=== PATIENT | female | born 1990 | race Caucasian/White ===

== ENCOUNTER 2016-11-07 19:31 | Emergency (ER) | payer BC, OTHER ==
[2016-11-07 19:40] VITALS: TEMP 100
[2016-11-07 20:38] LABS: Appearance,Urine Cloudy (Clear); Bacteria,Urine Occasional /hpf; Bilirubin,Urine Negative (Negative); Glucose,Urine (UA) Negative (Negative); Ketones,Urine Negative (Negative); Leukocyte Esterase,Urine Negative (Negative); Mucus,Urine Rare /hpf; Nitrite,Urine Negative (Negative); Particle Count 4267; Protein,Urine Trace (Negative); RBC,Urine 1 /hpf (0-5); Specific Gravity,Urine 1.024 (1.001-1.035); Squamous Epithelial Cell,Urine 9 /hpf (0-4); UA Billing (MACRO vs. MICRO) MICRO; WBC,Urine 3 /hpf (0-5)
[2016-11-07] MEDS ORDERED: SODIUM CHLORIDE 0.9% 1,000 ML IV ONE (20:38)
[2016-11-07] MEDS ORDERED: ONDANSETRON 4 MG/2 ML VIAL IVP STA (20:39)
[2016-11-07 20:43] LABS: ALT 30 U/L (9-52); AST 53 U/L (14-36); Alkaline Phosphatase 53 U/L (38-126); Amylase 38 U/L (30-110); Anion Gap 12 mmol/L; Blood Urea Nitrogen 19 mg/dL (7-17); Calcium 8.7 mg/dL (8.4-10.2); Carbon Dioxide 26 mmol/L (22-30); Chloride 99 mmol/L (98-107); Glucose 94 mg/dL (74-99); Non-African American GFR(MDRD) >60 (>60 ml/min/1.73 sqM); Potassium 3.8 mmol/L (3.5-5.1); Sodium 137 mmol/L (137-145); Total Bilirubin 1.2 mg/dL (0.2-1.3); Total Protein 7.2 g/dL (6.3-8.2)
--- NOTE | 2016-11-07 20:44 | ED ---
Abdominal Pain HPI - General Chief Complaint: Abdominal Pain Stated Complaint: abdominal pain Time Seen by Provider: 11/07/16 19:45 Source: patient, RN notes reviewed Mode of arrival: ambulatory Limitations: no limitations - History of Present Illness Initial Comments: Patient is 26-year-old female presents to the emergency room for evaluation of nausea, vomiting and diarrhea. Patient states around 10 PM last night she began having vomiting and diarrhea. Patient states symptoms began to subside around 4 AM. Patient states this morning she was still nauseous so she went to her primary care provider. Patient states she was tested for influenza and was negative. Patient states she was sent home with Zofran. Patient states her last dose of Zofran was at 2 PM this afternoon. Patient states again felt nauseous again. Patient states she also developed diarrhea and has been having on and off abdominal pain. Patient states symptoms have not subsided so she felt she needed to be seen in the emergency room. She denies taking any Tylenol or Motrin today. Patient denies any history of abdominal surgeries. Patient does state that she had sushi last night but states no, sick from it at she was with. Patient denies recent travel outside the country. Patient has pain or burning during urination, trouble urinating or blood in urine. Patient denies flank pain. Patient is chest pain, shortness of breath, headache, dizziness. - Related Data Home Medications Medication Instructions Recorded Confirmed Amoxicillin 875 mg PO Q12HR 11/07/16 11/07/16 Multivitamin [Multivitamins Adult 2 tab PO DAILY 11/07/16 11/07/16 Gummies] Allergies Allergy/AdvReac Type Severity Reaction Status Date / Time No Known Allergies Allergy Verified 11/07/16 20:00 Review of Systems ROS Statement: Those systems with pertinent positive or pertinent negative responses have been documented in the HPI. ROS Other: All systems not noted in ROS Statement are negative. Past Medical History Past Medical History: No Reported History History of Any Multi-Drug Resistant Organisms: None Reported Additional Past Surgical History / Comment(s): sinus surgery Past Psychological History: No Psychological Hx Reported Smoking Status: Never smoker Past Alcohol Use History: Occasional Past Drug Use History: None Reported General Exam - General Exam Comments Initial Comments: Laying in exam room in no acute distress. Limitations: no limitations General appearance: alert, in no apparent distress Head exam: Present: atraumatic, normocephalic, normal inspection Eye exam: Present: normal appearance ENT exam: Present: normal exam Neck exam: Present: normal inspection Respiratory exam: Present: normal lung sounds bilaterally. Absent: respiratory distress Cardiovascular Exam: Present: regular rate, normal rhythm, normal heart sounds GI/Abdominal exam: Present: soft, normal bowel sounds. Absent: distended, tenderness, guarding, rebound, rigid Extremities exam: Present: normal inspection Back exam: Present: normal inspection Neurological exam: Present: alert, oriented X3, CN II-XII intact, normal gait Psychiatric exam: Present: normal affect, normal mood Skin exam: Present: warm, dry, intact, normal color. Absent: rash Course Vital Signs 11/07/16 11/07/16 19:37 21:57 Temperature 100 F H Pulse Rate 101 H 70 Respiratory 20 14 Rate Blood Pressure 114/74 118/70 O2 Sat by Pulse 98 100 Oximetry Medical Decision Making - Medical Decision Making Patient is a 26-year-old female presents to emergency room for evaluation of nausea, vomiting and diarrhea. Labs show no significant findings. Patient states she's feeling better after fluids and antinausea medication. Advised patient to return for any worsening symptoms. Patient states she has Zofran at home for nausea. Patient states she understands everything that was discussed with her. Case discussed with Dr. Sibley. - Lab Data Result diagrams: 11/07/16 20:23 11/07/16 20:09 Lab Results 11/07/16 11/07/16 11/07/16 Range/Units 20:09 20:23 20:23 WBC 7.0 (3.8-10.6) k/uL RBC 4.37 (3.80-5.40) m/uL Hgb 14.5 (11.4-16.0) gm/dL Hct 42.6 (34.0-46.0) % MCV 97.6 (80.0-100.0) fL MCH 33.2 (25.0-35.0) pg MCHC 34.0 (31.0-37.0) g/dL RDW 13.1 (11.5-15.5) % Plt Count 165 (150-450) k/uL Neutrophils % 81 % Lymphocytes % 12 % Monocytes % 5 % Eosinophils % 0 % Basophils % 1 % Neutrophils # 5.7 (1.3-7.7) k/uL Lymphocytes # 0.8 L (1.0-4.8) k/uL Monocytes # 0.3 (0-1.0) k/uL Eosinophils # 0.0 (0-0.7) k/uL Basophils # 0.1 (0-0.2) k/uL Sodium 137 (137-145) mmol/L Potassium 3.8 (3.5-5.1) mmol/L Chloride 99 (98-107) mmol/L Carbon Dioxide 26 (22-30) mmol/L Anion Gap 12 mmol/L BUN 19 H (7-17) mg/dL Creatinine 0.92 (0.52-1.04) mg/dL Est GFR (MDRD) Af Amer >60 (>60 ml/min/1.73 sqM) Est GFR (MDRD) Non-Af >60 (>60 ml/min/1.73 sqM) Glucose 94 (74-99) mg/dL Calcium 8.7 (8.4-10.2) mg/dL Magnesium 1.9 (1.6-2.3) mg/dL Total Bilirubin 1.2 (0.2-1.3) mg/dL AST 53 H (14-36) U/L ALT 30 (9-52) U/L Alkaline Phosphatase 53 (38-126) U/L Total Protein 7.2 (6.3-8.2) g/dL Albumin 4.4 (3.5-5.0) g/dL Amylase 38 (30-110) U/L Lipase 33 (23-300) U/L Urine Color Urine Appearance (Clear) Urine pH (5.0-8.0) Ur Specific [place] (1.001-1.035) Urine Protein (Negative) Urine Glucose (UA) (Negative) Urine Ketones (Negative) Urine Blood (Negative) Urine Nitrate (Negative) Urine Bilirubin (Negative) Urine Urobilinogen (<2.0) mg/dL Ur Leukocyte Esterase (Negative) Urine RBC (0-5) /hpf Urine WBC (0-5) /hpf Ur Squamous Epith Cells (0-4) /hpf Urine Bacteria (None) /hpf Urine Mucus (None) /hpf Urine HCG, Qual Not Detected (Not Detectd) 11/07/16 Range/Units 20:23 WBC (3.8-10.6) k/uL RBC (3.80-5.40) m/uL Hgb (11.4-16.0) gm/dL Hct (34.0-46.0) % MCV (80.0-100.0) fL MCH (25.0-35.0) pg MCHC (31.0-37.0) g/dL RDW (11.5-15.5) % Plt Count (150-450) k/uL Neutrophils % % Lymphocytes % % Monocytes % % Eosinophils % % Basophils % % Neutrophils # (1.3-7.7) k/uL Lymphocytes # (1.0-4.8) k/uL Monocytes # (0-1.0) k/uL Eosinophils # (0-0.7) k/uL Basophils # (0-0.2) k/uL Sodium (137-145) mmol/L Potassium (3.5-5.1) mmol/L Chloride (98-107) mmol/L Carbon Dioxide (22-30) mmol/L Anion Gap mmol/L BUN (7-17) mg/dL Creatinine (0.52-1.04) mg/dL Est GFR (MDRD) Af Amer (>60 ml/min/1.73 sqM) Est GFR (MDRD) Non-Af (>60 ml/min/1.73 sqM) Glucose (74-99) mg/dL Calcium (8.4-10.2) mg/dL Magnesium (1.6-2.3) mg/dL Total Bilirubin (0.2-1.3) mg/dL AST (14-36) U/L ALT (9-52) U/L Alkaline Phosphatase (38-126) U/L Total Protein (6.3-8.2) g/dL Albumin (3.5-5.0) g/dL Amylase (30-110) U/L Lipase (23-300) U/L Urine Color Yellow Urine Appearance Cloudy H (Clear) Urine pH 6.0 (5.0-8.0) Ur Specific [place] 1.024 (1.001-1.035) Urine Protein Trace H (Negative) Urine Glucose (UA) Negative (Negative) Urine Ketones Negative (Negative) Urine Blood Small H (Negative) Urine Nitrate Negative (Negative) Urine Bilirubin Negative (Negative) Urine Urobilinogen 2.0 (<2.0) mg/dL Ur Leukocyte Esterase Negative (Negative) Urine RBC 1 (0-5) /hpf Urine WBC 3 (0-5) /hpf Ur Squamous Epith Cells 9 H (0-4) /hpf Urine Bacteria Occasional H (None) /hpf Urine Mucus Rare H (None) /hpf Urine HCG, Qual (Not Detectd) - Radiology Data Radiology results: report reviewed, image reviewed Disposition Clinical Impression: Nausea vomiting and diarrhea Disposition: HOME SELF-CARE Condition: Good Instructions: Gastroenteritis (ED) Additional Instructions: Drink plenty of fluids. Take Tylenol or Motrin for fever. Take Zofran as needed for nausea. Please follow up with primary care provider in 1-2 days. If any new symptom arises or symptoms worsen, return to ER as soon as possible. Referrals: None,Stated [Primary Care Provider] - 1-2 days Time of Disposition: 21:42
[2016-11-07 20:50] LABS: Basophils # (A) 0.1 k/uL (0-0.2); Basophils % (A) 1 %; CH 33.3; CHCM 34.3; Eosinophils % (A) 0 %; HCT 42.6 % (34.0-46.0); HDW 2.46; HGB 14.5 gm/dL (11.4-16.0); Luc # (Auto) 0.12; Luc % (Auto) 2; Lymphocytes # (A) 0.8 k/uL (1.0-4.8); Lymphocytes % (A) 12 %; MCH 33.2 pg (25.0-35.0); MCV 97.6 fL (80.0-100.0); Mean Platelet Volume 8.1; Monocytes # (A) 0.3 k/uL (0-1.0); Monocytes % (A) 5 %; Neutrophils # (A) 5.7 k/uL (1.3-7.7); Neutrophils % (A) 81 %; RBC 4.37 m/uL (3.80-5.40); RDW 13.1 % (11.5-15.5); WBC (Perox) 7.12
--- NOTE | 2016-11-07 21:05 | XR ---
EXAMINATION TYPE: XR KUB DATE OF EXAM: 11/07/2016 8:58 PM COMPARISON: NONE HISTORY: Abdominal pain TECHNIQUE: 2 views FINDINGS: There is no sign of intestinal obstruction or pneumoperitoneum. Fecal pattern is normal. Diego wel gas pattern is normal. There is no sign of a mass. Lung bases are clear. There are no pathologic calcifications over the kidneys. IMPRESSION: Nonacute abdomen.
[2016-11-07 21:26] LABS: Magnesium 1.9 mg/dL (1.6-2.3)
[2016-11-07 21:59] VITALS: BP 118/70; PULSE 70; RESP 14
== END 2016-11-07 21:57 | disposition home or self-care (01) ==
LOC: EC 19:31
DX: R11.2 Nausea with vomiting, unspecified (principal); R19.7 Diarrhea, unspecified
CPT/HCPCS: 36415; 80053; 82150; 83690; 83735; 85025; 81001; 81025; 74000; 99284; 96374; 96361; J2405

== ENCOUNTER 2017-12-31 12:36 | Emergency (ER) | payer BC ==
[2017-12-31] MEDS ORDERED: SODIUM CHLORIDE 0.9% 1,000 ML IV STA (13:22)
--- NOTE | 2017-12-31 13:24 | ED ---
General Adult HPI - General Chief complaint: Anxiety Stated complaint: psych meds not working Time Seen by Provider: 12/31/17 13:00 Source: patient, RN notes reviewed Mode of arrival: ambulatory Limitations: no limitations - History of Present Illness Initial comments: Patient 27-year-old female who presents emergency room today with a chief complaint of increased anxiety. Patient doesn't at the last week she's had no relief medications that have been prescribed. She states that she was prescribed medications approximate 2 months ago. She states she has been following up with the therapist approximately 2 weeks ago had a medication discontinued. She states she still not feeling any better. She states she's had feelings of increased anxiety. She states feels that her chest become smaller. She is shaky at times. She states the dizziness. States that she's felt nauseated. Patient states that she's had all these symptoms in the past. States she has difficult time concentrating and remembering things at times. Came here to the emergency room because the like her medications are not helping her. Patient denies any recent fever, chills, shortness of breath, chest pain, back pain, abdominal pain, dysuria or hematuria, constipation or diarrhea, visual changes, or any other complaints. - Related Data Home Medications Medication Instructions Recorded Confirmed Amoxicillin 875 mg PO Q12HR 11/07/16 11/07/16 Multivitamin [Multivitamins Adult 2 tab PO DAILY 11/07/16 11/07/16 Gummies] Allergies Allergy/AdvReac Type Severity Reaction Status Date / Time No Known Allergies Allergy Verified 12/31/17 12:52 Review of Systems ROS Statement: Those systems with pertinent positive or pertinent negative responses have been documented in the HPI. ROS Other: All systems not noted in ROS Statement are negative. Past Medical History Past Medical History: No Reported History History of Any Multi-Drug Resistant Organisms: None Reported Additional Past Surgical History / Comment(s): sinus surgery Past Psychological History: Anxiety, Depression Smoking Status: Never smoker Past Alcohol Use History: Occasional Past Drug Use History: None Reported General Exam - General Exam Comments Initial Comments: General: The patient is awake and alert, in no distress, and does not appear acutely ill. Eye: Pupils are equal, round and reactive to light, extra-ocular movements are intact. No nystagmus. There is normal conjunctiva bilaterally. No signs of icterus. Ears, nose, mouth and throat: There are moist mucous membranes and no oral lesions. Neck: The neck is supple, there is no tenderness or JVD. Cardiovascular: There is a regular rate and rhythm. No murmur, rub or gallop is appreciated. Respiratory: Lungs are clear to auscultation, respirations are non-labored, breath sounds are equal. No wheezes, stridor, rales, or rhonchi. Gastrointestinal: Soft, non-distended, non-tender abdomen without masses or organomegaly noted. There is no rebound or guarding present. No CVA tenderness. Bowel sounds are unremarkable. Musculoskeletal: Normal ROM, no tenderness. Strength 5/5. Sensation intact. Pulses equal bilaterally 2+. Neurological: A&O x 3. CN II-XII intact, There are no obvious motor or sensory deficits. Coordination appears grossly intact. Speech is normal. Skin: Skin is warm and dry and no rashes or lesions are noted. Psychiatric: Cooperative. Tearful. Limitations: no limitations Course Vital Signs 12/31/17 12:50 Temperature 98.7 F Pulse Rate 85 Respiratory 20 Rate Blood Pressure 139/89 O2 Sat by Pulse 98 Oximetry Medical Decision Making - Medical Decision Making Patient has been seen by mental health here in emergency room. They recommended patient follow up outpatient. She has set up appointments with both counselor and a psychiatrist tomorrow. They will be able to evaluate her medications. Patient denies any suicidal or homicidal thoughts or plans. Patient has come. At this point going home. Advised return if any symptoms increase or worsen. - Lab Data Result diagrams: 12/31/17 13:40 12/31/17 13:40 Lab Results 12/31/17 12/31/17 12/31/17 Range/Units 13:40 13:40 13:40 WBC 5.3 (3.8-10.6) k/uL RBC 4.46 (3.80-5.40) m/uL Hgb 14.7 (11.4-16.0) gm/dL Hct 42.3 (34.0-46.0) % MCV 95.0 (80.0-100.0) fL MCH 33.0 (25.0-35.0) pg MCHC 34.7 (31.0-37.0) g/dL RDW 12.6 (11.5-15.5) % Plt Count 227 (150-450) k/uL Neutrophils % 58 % Lymphocytes % 33 % Monocytes % 5 % Eosinophils % 2 % Basophils % 1 % Neutrophils # 3.1 (1.3-7.7) k/uL Lymphocytes # 1.8 (1.0-4.8) k/uL Monocytes # 0.3 (0-1.0) k/uL Eosinophils # 0.1 (0-0.7) k/uL Basophils # 0.0 (0-0.2) k/uL Sodium 144 (137-145) mmol/L Potassium 4.1 (3.5-5.1) mmol/L Chloride 106 (98-107) mmol/L Carbon Dioxide 27 (22-30) mmol/L Anion Gap 11 mmol/L BUN 16 (7-17) mg/dL Creatinine 0.63 (0.52-1.04) mg/dL Est GFR (CKD-EPI)AfAm >90 (>60 ml/min/1.73 sqM) Est GFR (CKD-EPI)NonAf >90 (>60 ml/min/1.73 sqM) Glucose 86 (74-99) mg/dL Calcium 9.2 (8.4-10.2) mg/dL Urine Color Urine Appearance (Clear) Urine pH (5.0-8.0) Ur Specific [place] (1.001-1.035) Urine Protein (Negative) Urine Glucose (UA) (Negative) Urine Ketones (Negative) Urine Blood (Negative) Urine Nitrite (Negative) Urine Bilirubin (Negative) Urine Urobilinogen (<2.0) mg/dL Ur Leukocyte Esterase (Negative) Urine HCG, Qual Not Detected (Not Detectd) Urine Opiates Screen (NotDetected) Ur Oxycodone Screen (NotDetected) Urine Methadone Screen (NotDetected) Ur Propoxyphene Screen (NotDetected) Ur Barbiturates Screen (NotDetected) U Tricyclic Antidepress (NotDetected) Ur Phencyclidine Scrn (NotDetected) Ur Amphetamines Screen (NotDetected) U Methamphetamines Scrn (NotDetected) U Benzodiazepines Scrn (NotDetected) Urine Cocaine Screen (NotDetected) U Marijuana (THC) Screen (NotDetected) 12/31/17 Range/Units 13:40 WBC (3.8-10.6) k/uL RBC (3.80-5.40) m/uL Hgb (11.4-16.0) gm/dL Hct (34.0-46.0) % MCV (80.0-100.0) fL MCH (25.0-35.0) pg MCHC (31.0-37.0) g/dL RDW (11.5-15.5) % Plt Count (150-450) k/uL Neutrophils % % Lymphocytes % % Monocytes % % Eosinophils % % Basophils % % Neutrophils # (1.3-7.7) k/uL Lymphocytes # (1.0-4.8) k/uL Monocytes # (0-1.0) k/uL Eosinophils # (0-0.7) k/uL Basophils # (0-0.2) k/uL Sodium (137-145) mmol/L Potassium (3.5-5.1) mmol/L Chloride (98-107) mmol/L Carbon Dioxide (22-30) mmol/L Anion Gap mmol/L BUN (7-17) mg/dL Creatinine (0.52-1.04) mg/dL Est GFR (CKD-EPI)AfAm (>60 ml/min/1.73 sqM) Est GFR (CKD-EPI)NonAf (>60 ml/min/1.73 sqM) Glucose (74-99) mg/dL Calcium (8.4-10.2) mg/dL Urine Color Yellow Urine Appearance Clear (Clear) Urine pH 6.0 (5.0-8.0) Ur Specific [place] 1.025 (1.001-1.035) Urine Protein Trace H (Negative) Urine Glucose (UA) Negative (Negative) Urine Ketones Negative (Negative) Urine Blood Negative (Negative) Urine Nitrite Negative (Negative) Urine Bilirubin Negative (Negative) Urine Urobilinogen <2.0 (<2.0) mg/dL Ur Leukocyte Esterase Negative (Negative) Urine HCG, Qual (Not Detectd) Urine Opiates Screen Not Detected (NotDetected) Ur Oxycodone Screen Not Detected (NotDetected) Urine Methadone Screen Not Detected (NotDetected) Ur Propoxyphene Screen Not Detected (NotDetected) Ur Barbiturates Screen Not Detected (NotDetected) U Tricyclic Antidepress Not Detected (NotDetected) Ur Phencyclidine Scrn Not Detected (NotDetected) Ur Amphetamines Screen Not Detected (NotDetected) U Methamphetamines Scrn Not Detected (NotDetected) U Benzodiazepines Scrn Detected H (NotDetected) Urine Cocaine Screen Not Detected (NotDetected) U Marijuana (THC) Screen Not Detected (NotDetected) Disposition Clinical Impression: Anxiety Disposition: HOME SELF-CARE Instructions: Generalized Anxiety Disorder (ED) Additional Instructions: Please follow-up with your appointment tomorrow for counselor and psychiatrist. Is patient prescribed a controlled substance at discharge?: No Referrals: Dena Gustafson MD [Primary Care Provider] - 1-2 days Time of Disposition: 16:09
[2017-12-31 13:55] LABS: Basophils % (A) 1 %; Eosinophils # (A) 0.1 k/uL (0-0.7); Eosinophils % (A) 2 %; HCT 42.3 % (34.0-46.0); HGB 14.7 gm/dL (11.4-16.0); Lymphocytes # (A) 1.8 k/uL (1.0-4.8); Lymphocytes % (A) 33 %; MCHC 34.7 g/dL (31.0-37.0); Mean Platelet Volume 7.1; Monocytes # (A) 0.3 k/uL (0-1.0); Monocytes % (A) 5 %; Neutrophils # (A) 3.1 k/uL (1.3-7.7); Neutrophils % (A) 58 %; Platelet Count 227 k/uL (150-450); RBC 4.46 m/uL (3.80-5.40); RDW 12.6 % (11.5-15.5); WBC 5.3 k/uL (3.8-10.6)
[2017-12-31 13:58] LABS: Appearance,Urine Clear (Clear); Bilirubin,Urine Negative (Negative); Blood,Urine Negative (Negative); Color,Urine Yellow; Glucose,Urine (UA) Negative (Negative); Ketones,Urine Negative (Negative); Leukocyte Esterase,Urine Negative (Negative); Nitrite,Urine Negative (Negative); Protein,Urine Trace (Negative); Specific Gravity,Urine 1.025 (1.001-1.035); Urobilinogen,Urine <2.0 mg/dL (<2.0)
[2017-12-31 14:04] LABS: Anion Gap 11 mmol/L; Blood Urea Nitrogen 16 mg/dL (7-17); Calcium 9.2 mg/dL (8.4-10.2); Carbon Dioxide 27 mmol/L (22-30); Chloride 106 mmol/L (98-107); Glucose 86 mg/dL (74-99); Potassium 4.1 mmol/L (3.5-5.1); Sodium 144 mmol/L (137-145)
[2017-12-31 14:10] LABS: Amphetamine Screen,Urine Not Detected (NotDetected); Barbiturate Screen,Urine Not Detected (NotDetected); Benzodiazepines Screen,Urine Detected (NotDetected); Cocaine Screen,Urine Not Detected (NotDetected); Methadone Screen, Urine Not Detected (NotDetected); Opiate Screen,Urine Not Detected (NotDetected); Oxycodone Screen, Urine Not Detected (NotDetected); Phencyclidine Screen,Urine Not Detected (NotDetected); Tricyclic Antidepressant,Urine Not Detected (NotDetected); Urn Cannabinoid Scrn Not Detected (NotDetected)
[2017-12-31 16:29] VITALS: BP 117/87; PULSE 87; RESP 18; TEMP 98.1
== END 2017-12-31 16:29 | disposition home or self-care (01) ==
LOC: EC 12:36
DX: F41.9 Anxiety disorder, unspecified (principal); R45.83 Excessive crying of child, adolescent or adult; R42 Dizziness and giddiness
CPT/HCPCS: 36415; 80048; 80306; 81003; 81025; 82075; 85025; 96360; 99283

== ENCOUNTER → 2018-04-18 | Outpatient (CLI) | payer BC ==
--- NOTE | 2018-04-18 07:58 | MR ---
EXAMINATION TYPE: MR brain wo/w con DATE OF EXAM: 04/18/2018 7:51 AM COMPARISON: NONE HISTORY: Headache TECHNIQUE: Multiplanar, multiecho imaging of the brain was obtained with and without intravenous adm inistration of 6 mL intravenous Gadavist. FINDINGS: The cerebellar tonsils are slightly low-lying. They do not meet the requirement of a Chiari I malformation. Midline structures are otherwise unremarkable. Echoplanar diffusion imaging is unremarkable. There are normal vascular flow voids. The orbits are unremarkable. There is no evidence of a CP angle mass lesion. There is no focal lesion, mass effect or midline shift. I do not see evidence of intracranial blood. Following intravenous administration of gadolinium, I do not see evidence of abnormal enhancement. IMPRESSION: 1. NO ACUTE INTRACRANIAL ABNORMALITY. 2. SLIGHTLY LOW-LYING CEREBELLAR TONSILS.
== END | disposition home or self-care (01) ==
LOC: RADMRIMAIN 07:12
PROVIDERS: ATTEND Psychiatry & Neurology Pain Medicine
DX: R51 Headache (principal)
CPT/HCPCS: 70553; A9581

== ENCOUNTER 2019-02-02 20:16 | Emergency (ER) | payer BC ==
--- NOTE | 2019-02-02 21:03 | ED ---
Psych HPI - General Chief Complaint: Psychiatric Symptoms Stated Complaint: Mental Health Time Seen by Provider: 02/02/19 21:03 Source: patient Mode of arrival: ambulatory - History of Present Illness Initial Comments: Miriam is a 28 yo female with a history of anxiety and depression who presents to the emergency department today for evaluation of anxiety, difficulty sleeping, difficulty attending to her activities of daily living. Patient states that she's just felt overwhelmed by the stress of her job, she states that due to chronic shoulder and neck pain she has trouble completing the tasks she is assigned. She states that she is attempted to speak with her employer a bout this but continues to be given difficult physical tasks and at this point is in danger of losing her job due to her inability to complete her tasks. Patient reports that she has waves of moods where she feels that she needs to sleep all day every day she states that she sleeps through work she sleeps throughout appointment sometime she has dreams that she went to work and then wakes up and realized that she didn't. Patient states that she has tried to have outpatient follow-up with counselors and psychiatrist however her psychiatrist left the practice and she's been unable follow up with her counselor due to her or tendons. Patient states that she just feels like she has periods of really good moods where she is very productive and then times her she feels very depressed and can't accomplish anything in her life. She states that she feels like she probably needs to be on a mood stabilizer by her primary care physician will not prescribe her one. Patient states she didn't know what else to do she feels like her life is falling apart so she came to the ER for evaluation. - Related Data Home Medications Medication Instructions Recorded Confirmed FLUoxetine HCL [PROzac] 40 mg PO DAILY 02/02/19 02/02/19 Lisdexamfetamine Dimesylate 60 mg PO QAM 02/02/19 02/02/19 [Vyvanse] Allergies Allergy/AdvReac Type Severity Reaction Status Date / Time No Known Allergies Allergy Verified 02/02/19 21:21 Review of Systems ROS Statement: Those systems with pertinent positive or pertinent negative responses have been documented in the HPI. ROS Other: All systems not noted in ROS Statement are negative. Past Medical History Past Medical History: No Reported History History of Any Multi-Drug Resistant Organisms: None Reported Additional Past Surgical History / Comment(s): sinus surgery Past Psychological History: Anxiety, Depression Smoking Status: Current some day smoker Past Alcohol Use History: Occasional Past Drug Use History: None Reported General Exam - General Exam Comments Initial Comments: Physical Exam GENERAL: Patient is well-developed and well-nourished. Patient is nontoxic and well-hydrated and is in no distress. HENT: Normocephalic, Atraumatic. EYES: PERRL, EOMI PULMONARY: Unlabored respirations. No audible rales rhonchi or wheezing was noted. CARDIOVASCULAR: There is a regular rate and rhythm without any murmurs gallops or rubs. ABDOMEN: Soft and nontender with normal bowel sounds. SKIN: Skin is clear with no lesions or rashes and otherwise unremarkable. : Deferred NEUROLOGIC: Patient is alert and oriented x3. Moving all extremities spontaneously MUSCULOSKELETAL: Normal extremities with adequate strength and full range of motion. No lower extremity swelling or edema. No calf tenderness. PSYCHIATRIC: Anxious, tearful Deny suicidal or homicidal ideation Limitations: no limitations Course Vital Signs 02/02/19 20:53 Temperature 98.1 F Pulse Rate 71 Respiratory 20 Rate Blood Pressure 144/102 O2 Sat by Pulse 99 Oximetry Medical Decision Making - Medical Decision Making Patient was seen and evaluated history is obtained from the patient Patient is very anxious, tearful concerned that she's not attending to her to use of daily living she feels depressed she is likely going to lose her job due to inability to perform her tasks and her poor attendance patient reports that she just feels like her moods go up and down and right now they're very down. Patient's medically cleared for evaluation by psychiatry Patient was seen and evaluated by EPS who recommended the patient be discharged home with a plan for a partial day program patient is agreeable to this. Patient discharged home in stable condition. - Lab Data Result diagrams: 02/02/19 21:40 02/02/19 21:40 Lab Results 02/02/19 02/02/19 02/02/19 Range/Units 21:40 21:40 21:46 WBC 5.2 (3.8-10.6) k/uL RBC 4.05 (3.80-5.40) m/uL Hgb 12.9 (11.4-16.0) gm/dL Hct 39.6 (34.0-46.0) % MCV 97.9 (80.0-100.0) fL MCH 31.9 (25.0-35.0) pg MCHC 32.6 (31.0-37.0) g/dL RDW 13.0 (11.5-15.5) % Plt Count 240 (150-450) k/uL Neutrophils % 47 % Lymphocytes % 39 % Monocytes % 6 % Eosinophils % 4 % Basophils % 1 % Neutrophils # 2.5 (1.3-7.7) k/uL Lymphocytes # 2.0 (1.0-4.8) k/uL Monocytes # 0.3 (0-1.0) k/uL Eosinophils # 0.2 (0-0.7) k/uL Basophils # 0.1 (0-0.2) k/uL Sodium 139 (137-145) mmol/L Potassium 4.4 (3.5-5.1) mmol/L Chloride 105 (98-107) mmol/L Carbon Dioxide 28 (22-30) mmol/L Anion Gap 6 mmol/L BUN 17 (7-17) mg/dL Creatinine 0.68 (0.52-1.04) mg/dL Est GFR (CKD-EPI)AfAm >90 (>60 ml/min/1.73 sqM) Est GFR (CKD-EPI)NonAf >90 (>60 ml/min/1.73 sqM) Glucose 84 (74-99) mg/dL Calcium 9.4 (8.4-10.2) mg/dL Total Bilirubin 0.2 (0.2-1.3) mg/dL AST 27 (14-36) U/L ALT 18 (9-52) U/L Alkaline Phosphatase 85 (38-126) U/L Total Protein 6.4 (6.3-8.2) g/dL Albumin 4.0 (3.5-5.0) g/dL Urine Opiates Screen Not Detected (NotDetected) Ur Oxycodone Screen Not Detected (NotDetected) Urine Methadone Screen Not Detected (NotDetected) Ur Propoxyphene Screen Not Detected (NotDetected) Ur Barbiturates Screen Not Detected (NotDetected) U Tricyclic Antidepress Not Detected (NotDetected) Ur Phencyclidine Scrn Not Detected (NotDetected) Ur Amphetamines Screen Detected H (NotDetected) U Methamphetamines Scrn Not Detected (NotDetected) U Benzodiazepines Scrn Not Detected (NotDetected) Urine Cocaine Screen Not Detected (NotDetected) U Marijuana (THC) Screen Not Detected (NotDetected) Disposition Clinical Impression: Acute anxiety, Depression Disposition: HOME SELF-CARE Condition: Stable Instructions (If sedation given, give patient instructions): Depression (DC) Is patient prescribed a controlled substance at d/c from ED?: No Referrals: Dena Gustafson MD [Primary Care Provider] - 1-2 days
[2019-02-02 21:49] LABS: Basophils # (A) 0.1 k/uL (0-0.2); Basophils % (A) 1 %; Eosinophils # (A) 0.2 k/uL (0-0.7); Eosinophils % (A) 4 %; HCT 39.6 % (34.0-46.0); HGB 12.9 gm/dL (11.4-16.0); Lymphocytes % (A) 39 %; MCH 31.9 pg (25.0-35.0); MCHC 32.6 g/dL (31.0-37.0); MCV 97.9 fL (80.0-100.0); Monocytes # (A) 0.3 k/uL (0-1.0); Monocytes % (A) 6 %; Neutrophils # (A) 2.5 k/uL (1.3-7.7); Neutrophils % (A) 47 %; Platelet Count 240 k/uL (150-450); RBC 4.05 m/uL (3.80-5.40); WBC 5.2 k/uL (3.8-10.6)
[2019-02-02 21:59] LABS: ALT 18 U/L (9-52); AST 27 U/L (14-36); Alkaline Phosphatase 85 U/L (38-126); Anion Gap 6 mmol/L; Blood Urea Nitrogen 17 mg/dL (7-17); Calcium 9.4 mg/dL (8.4-10.2); Carbon Dioxide 28 mmol/L (22-30); Chloride 105 mmol/L (98-107); Glucose 84 mg/dL (74-99); Potassium 4.4 mmol/L (3.5-5.1); Sodium 139 mmol/L (137-145); Total Bilirubin 0.2 mg/dL (0.2-1.3); Total Protein 6.4 g/dL (6.3-8.2)
[2019-02-02 22:11] LABS: Urn Cannabinoid Scrn Not Detected (NotDetected)
[2019-02-02 22:12] LABS: Amphetamine Screen,Urine Detected (NotDetected); Barbiturate Screen,Urine Not Detected (NotDetected); Benzodiazepines Screen,Urine Not Detected (NotDetected); Cocaine Screen,Urine Not Detected (NotDetected); Methadone Screen, Urine Not Detected (NotDetected); Opiate Screen,Urine Not Detected (NotDetected); Oxycodone Screen, Urine Not Detected (NotDetected); Phencyclidine Screen,Urine Not Detected (NotDetected); Tricyclic Antidepressant,Urine Not Detected (NotDetected)
[2019-02-03 00:50] VITALS: BP 143/99; PULSE 64; RESP 16; TEMP 98.3
== END 2019-02-03 00:57 | disposition home or self-care (01) ==
LOC: EC 20:16
DX: F41.9 Anxiety disorder, unspecified (principal); F32.9 Major depressive disorder, single episode, unspecified; M54.2 Cervicalgia; M25.519 Pain in unspecified shoulder; G89.29 Other chronic pain; F17.200 Nicotine dependence, unspecified, uncomplicated; Z98.890 Other specified postprocedural states; Z79.899 Other long term (current) drug therapy
CPT/HCPCS: 36415; 80053; 80306; 82075; 85025; 99284

== ENCOUNTER → 2020-03-30 | Outpatient (CLI) | payer BC | END | disposition home or self-care (01) | LOC: LABWHC1 12:26 | PROVIDERS: ATTEND Obstetrics & Gynecology | DX: O20.0 Threatened abortion (principal) | CPT/HCPCS: 36415; 84702; 86850; 86900; 86901 ==

== ENCOUNTER → 2020-10-04 | Outpatient (CLI) | payer BC ==
--- NOTE | 2020-10-04 17:06 | MR ---
EXAMINATION TYPE: MR brain wo con DATE OF EXAM: 10/04/2020 COMPARISON: 04/18/2018 HISTORY: Headaches CONTRAST: None TECHNIQUE: Multiplanar, multiecho imaging on a 3.0 Melly magnet is performed through the brain. Stud y is performed within 24 hours of arrival to the hospital. The craniovertebral junction is normal. No tonsillar pegging are significant distention through the f oramen magnum is evident. The pituitary is normal. Optic chiasm is normal. Diffusion-weighted imaging is performed. No abnormal hyperintensity is present to suggest an acute i ntracranial infarct or acute ischemic change. Signal through the brain is normal. A solitary white matter change in the left parietal subcortical w alona matter is present not out of proportion to the patient age. Series 501 image 20. This is nonspec ific. High-grade headaches could be considered within the differential. Ventricles and sulci are appropriate for the patient age. IMPRESSIONS: 1. Solitary white matter change left parietal lobe not out of proportion patient age. Punctate white matter changes can be associated with migraine headaches.
== END | disposition home or self-care (01) ==
LOC: RADMRIMAIN 10:36
PROVIDERS: ATTEND Internal Medicine
DX: R90.82 White matter disease, unspecified (principal); R51.9 Headache, unspecified
CPT/HCPCS: 70551

== ENCOUNTER 2021-03-19 | Emergency (ER) | payer BC | END 2021-03-20 10:48 ==

== ENCOUNTER 2022-03-13 09:50 | Emergency (ER) | payer BC ==
[2022-03-13] MEDS ORDERED: KETOROLAC 15 MG/ML 1 ML VIAL IVP STA (10:15)
[2022-03-13 10:16] VITALS: RESP 18; TEMP 98.1
--- NOTE | 2022-03-13 10:33 | ED ---
Abdominal Pain HPI - General Chief Complaint: Abdominal Pain Stated Complaint: Abd pain Time Seen by Provider: 03/13/22 10:03 Source: patient, EMS, RN notes reviewed Mode of arrival: EMS Limitations: no limitations - History of Present Illness Initial Comments: Patient is a 32-year-old female presents to the emergency room via EMS for sudden onset of right lower quadrant pain; pain is in both her flank and right lower quadrant she believes that began as right flank pain radiating to her abdomen but is unsure as it feels like something in her abdomen is going to "burst". She received 4 mg of Zofran and 100 mcgs of fentanyl on route to the hospital via EMS without significant improvement in symptoms. She is complaining of flushing/feeling warm but denies overt fevers or chills. She is also complaining of nausea without vomiting. The symptom has not improved with Zofran. She denies any dysuria, hematuria urinary frequency, diarrhea, co nstipation, history of kidney stones or colonic abnormalities. She denies any chance of as she is on Depo-Provera as an injection contraceptive. She has past medical history significant for anxiety, depression, and migraines. She denies any other complaints or concerns at this time. - Related Data Home Medications Medication Instructions Recorded Confirmed Dextroamphetamine/Amphetamine 10 mg PO TID PRN 03/19/21 03/19/21 [Adderall] Erenumab-Aooe [Aimovig 140 mg INJ Q30D 03/19/21 03/19/21 Autoinjector] Medroxyprogesterone Acetate 150 mg INJ Q84D 03/19/21 03/19/21 [Depo-Provera] Venlafaxine HCl [Effexor XR] 37.5 mg PO HS 03/19/21 03/19/21 Previous Rx's Medication Instructions Recorded Ibuprofen [Motrin] 800 mg PO Q8H 10 Days #30 tab 03/13/22 Allergies Allergy/AdvReac Type Severity Reaction Status Date / Time No Known Allergies Allergy Verified 03/13/22 10:17 Review of Systems ROS Statement: Those systems with pertinent positive or pertinent negative responses have been documented in the HPI. ROS Other: All systems not noted in ROS Statement are negative. Past Medical History Past Medical History: No Reported History Additional Past Medical History / Comment(s): Migraine History of Any Multi-Drug Resistant Organisms: None Reported Additional Past Surgical History / Comment(s): sinus surgery Past Psychological History: Anxiety, Depression Smoking Status: Never smoker Past Alcohol Use History: Occasional Past Drug Use History: None Reported General Exam Limitations: no limitations General appearance: alert, in no apparent distress, other (in pain) Head exam: Present: atraumatic, normocephalic, normal inspection Eye exam: Present: normal appearance, PERRL, EOMI. Absent: scleral icterus, conjunctival injection, periorbital swelling ENT exam: Present: normal exam, mucous membranes moist Neck exam: Present: normal inspection Respiratory exam: Present: normal lung sounds bilaterally. Absent: respiratory distress, wheezes, rales, rhonchi, stridor, accessory muscle use Cardiovascular Exam: Present: regular rate, normal rhythm, normal heart sounds. Absent: systolic murmur, diastolic murmur, rubs, gallop, clicks GI/Abdominal exam: Present: soft, normal bowel sounds. Absent: distended, tenderness, guarding, rebound, rigid Rectal exam: Present: deferred Back exam: Present: normal inspection, CVA tenderness (R). Absent: CVA tenderness (L) Neurological exam: Present: alert, oriented X3, CN II-XII intact Psychiatric exam: Present: normal affect, normal mood Skin exam: Present: warm, dry, intact, normal color. Absent: rash Course Vital Signs 03/13/22 10:13 Temperature 98.1 F Pulse Rate 60 Respiratory 18 Rate Blood Pressure 131/87 O2 Sat by Pulse 98 Oximetry Medical Decision Making - Medical Decision Making In the setting of sudden onset severe abdominal pain will check CBC, CMP, urinalysis, and test. Once test negative will check CT of th e abdomen to rule out appendicitis. High probability for nephrolithiasis or UTI with pyelonephritis. Will give Toradol with her recent fentanyl given by ambulance without relief And monitor response. CT abdomen and pelvis shows right hydroureter and right hydronephrosis secondary to small stone versus stricture versus infection. Urinalysis not consistent with infection. Pain returned after Toradol dose. Morphine given for pain. Will monitor response. If able to control pain will plan for discharge home with plenty of oral fluids along with ibuprofen. If unable to control pain will need observation admission for intractable pain. Pain well-controlled after morphine and IV fluid bolus. Will discharge home with ibuprofen prescription along with strainer for possible catching of stone. Advised to follow-up with primary care provider and drink plenty of fluids along with avoidance of cold was and caffeine. Case discussed with Dr. Huang. - Lab Data Result diagrams: 03/13/22 10:26 03/13/22 10:26 Lab Results 03/13/22 03/13/22 03/13/22 Range/Units 10:26 10:26 10:26 WBC 8.5 (3.8-10.6) k/uL RBC 4.14 (3.80-5.40) m/uL Hgb 13.5 (11.4-16.0) gm/dL Hct 39.6 (34.0-46.0) % MCV 95.8 (80.0-100.0) fL MCH 32.7 (25.0-35.0) pg MCHC 34.1 (31.0-37.0) g/dL RDW 12.9 (11.5-15.5) % Plt Count 273 (150-450) k/uL MPV 7.5 Neutrophils % 67 % Lymphocytes % 26 % Monocytes % 3 % Eosinophils % 1 % Basophils % 1 % Neutrophils # 5.7 (1.3-7.7) k/uL Lymphocytes # 2.2 (1.0-4.8) k/uL Monocytes # 0.3 (0-1.0) k/uL Eosinophils # 0.1 (0-0.7) k/uL Basophils # 0.1 (0-0.2) k/uL Sodium 137 (137-145) mmol/L Potassium 3.5 (3.5-5.1) mmol/L Chloride 107 (98-107) mmol/L Carbon Dioxide 22 (22-30) mmol/L Anion Gap 8 mmol/L BUN 11 (7-17) mg/dL Creatinine 0.92 (0.52-1.04) mg/dL Est GFR (CKD-EPI)AfAm >90 (>60 ml/min/1.73 sqM) Est GFR (CKD-EPI)NonAf 82 (>60 ml/min/1.73 sqM) Glucose 125 H (74-99) mg/dL Calcium 8.3 L (8.4-10.2) mg/dL Total Bilirubin 0.2 (0.2-1.3) mg/dL AST 20 (14-36) U/L ALT 10 (4-34) U/L Alkaline Phosphatase 69 (38-126) U/L Total Protein 6.6 (6.3-8.2) g/dL Albumin 4.0 (3.5-5.0) g/dL Amylase 59 (30-110) U/L Lipase 71 (23-300) U/L HCG, Quant <2.4 mIU/mL Urine Color Yellow Urine Appearance Cloudy H (Clear) Urine pH 5.0 (5.0-8.0) Ur Specific [place] 1.025 (1.001-1.035) Urine Protein Trace H (Negative) Urine Glucose (UA) Negative (Negative) Urine Ketones Negative (Negative) Urine Blood Trace H (Negative) Urine Nitrite Negative (Negative) Urine Bilirubin Negative (Negative) Urine Urobilinogen <2.0 (<2.0) mg/dL Ur Leukocyte Esterase Negative (Negative) Urine RBC <1 (0-5) /hpf Urine WBC 1 (0-5) /hpf Ur Squamous Epith Cells 67 H (0-4) /hpf Urine Bacteria Rare H (None) /hpf Urine Mucus Few H (None) /hpf - Radiology Data Radiology results: report reviewed, image reviewed CT abdomen and pelvis impression right-sided hydroureter and hydronephrosis likely secondary to very tiny obstructing stone at the right ureter toe vascular junction versus stricture at that location or recently passed stone. Associated infection cannot be excluded. Recommend clinically correlating and correlation with urinalysis. Chronic colitis without acute diverticulitis or acute appendicitis. Disposition Clinical Impression: Nephrolithiasis Disposition: HOME SELF-CARE Condition: Fair Additional Instructions: Drink plenty of water. Avoid caffeine and call us. Strainer provided to attempt to catch renal stone. Utilize ibuprofen prescription as needed for pain. Please return to the Emergency Department if symptoms worsen or any other concerns. Prescriptions: Ibuprofen [Motrin] 800 mg PO Q8H 10 Days #30 tab Is patient prescribed a controlled substance at d/c from ED?: No Referrals: Tristen Booker DO [Primary Care Provider] - 1-2 days Forms: Work/School Release Time of Disposition: 13:54
[2022-03-13 10:41] LABS: Basophils # (A) 0.1 k/uL (0-0.2); Basophils % (A) 1 %; Eosinophils # (A) 0.1 k/uL (0-0.7); Eosinophils % (A) 1 %; HCT 39.6 % (34.0-46.0); HGB 13.5 gm/dL (11.4-16.0); Lymphocytes # (A) 2.2 k/uL (1.0-4.8); Lymphocytes % (A) 26 %; MCH 32.7 pg (25.0-35.0); MCHC 34.1 g/dL (31.0-37.0); MCV 95.8 fL (80.0-100.0); Mean Platelet Volume 7.5; Monocytes # (A) 0.3 k/uL (0-1.0); Monocytes % (A) 3 %; Neutrophils # (A) 5.7 k/uL (1.3-7.7); Neutrophils % (A) 67 %; Platelet Count 273 k/uL (150-450); RBC 4.14 m/uL (3.80-5.40); RDW 12.9 % (11.5-15.5); WBC 8.5 k/uL (3.8-10.6)
[2022-03-13 10:45] LABS: Appearance,Urine Cloudy (Clear); Bacteria,Urine Rare /hpf; Bilirubin,Urine Negative (Negative); Blood,Urine Trace (Negative); Color,Urine Yellow; Glucose,Urine (UA) Negative (Negative); Ketones,Urine Negative (Negative); Leukocyte Esterase,Urine Negative (Negative); Mucus,Urine Few /hpf; Nitrite,Urine Negative (Negative); Protein,Urine Trace (Negative); RBC,Urine <1 /hpf (0-5); Specific Gravity,Urine 1.025 (1.001-1.035); Squamous Epithelial Cell,Urine 67 /hpf (0-4); Urobilinogen,Urine <2.0 mg/dL (<2.0); WBC,Urine 1 /hpf (0-5)
[2022-03-13 10:55] LABS: ALT 10 U/L (4-34); AST 20 U/L (14-36); African American GFR (CKD) >90 (>60 ml/min/1.73 sqM); Alkaline Phosphatase 69 U/L (38-126); Amylase 59 U/L (30-110); Anion Gap 8 mmol/L; Blood Urea Nitrogen 11 mg/dL (7-17); Calcium 8.3 mg/dL (8.4-10.2); Carbon Dioxide 22 mmol/L (22-30); Chloride 107 mmol/L (98-107); Glucose 125 mg/dL (74-99); Lipase 71 U/L (23-300); Non-African American GFR(CKD) 82 (>60 ml/min/1.73 sqM); Potassium 3.5 mmol/L (3.5-5.1); Sodium 137 mmol/L (137-145); Total Bilirubin 0.2 mg/dL (0.2-1.3); Total Protein 6.6 g/dL (6.3-8.2)
[2022-03-13 11:12] LABS: HCG,Quantitative Serum <2.4 mIU/mL
[2022-03-13] MEDS ORDERED: MORPHINE SULFATE 4 MG/ML SYRINGE IVP STA (11:40)
--- NOTE | 2022-03-13 12:01 | CT ---
EXAMINATION TYPE: CT abdomen pelvis w con DATE OF EXAM: 03/13/2022 COMPARISON: None available HISTORY: RLQ pain CT DLP: 1133.4 mGycm Automated exposure control for dose reduction was used. TECHNIQUE: Helical acquisition of images was performed from the lung bases through the pelvis. CONTRAST: Performed without Oral Contrast and with IV Contrast, patient injected with 100 mL of Isovue 300. FINDINGS: LUNG BASES: No significant abnormality is appreciated. LIVER/GB: No significant abnormality is appreciated. PANCREAS: No significant abnormality is seen. SPLEEN: No significant abnormality is seen. ADRENALS: No significant abnormality is seen. KIDNEYS: Dilated right renal collecting system and right ureter with questionable 1.4 mm stone at the right ureterovesical junction versus a stricture at this location. Associated persistent nephrogram of the right kidney with delayed excretion and perinephric fat stranding. Right renal cyst without clarke spicious feature. Unremarkable left kidney. No left-sided hydroureter or hydronephrosis. FREE AIR: No free air is visualized. RETROPERITONEAL ADENOPATHY: None visualized REPRODUCTIVE ORGANS: Left ovarian follicle/cyst measuring 2.7 cm which could be normal for the patien t's age. No gross uterine or adnexal mass otherwise. URINARY BLADDER: Completely collapsed. PELVIC ADENOPATHY: No pathologically enlarged pelvic lymph nodes. OSSEOUS STRUCTURES: No aggressive bone lesion. BOWEL: Small sliding hiatal hernia. Unremarkable small bowel. Diffuse mild wall thickening and fatty infiltration of the colon which could be related to chronic colitis. No evidence of acute diverticul itis or acute appendicitis. OTHER: Unremarkable abdominal aorta. Suspected pelvic adhesions. No sizable ascites. IMPRESSION: Right-sided hydroureter and hydronephrosis likely secondary to a very tiny obstructing stone at the r ight ureterovesical junction versus a stricture at that location or a recently passed stone. Associat ed infection cannot be excluded. Recommend clinical correlation and correlation with urinalysis resul ts. Other findings as described above.
[2022-03-13 14:43] VITALS: BP 126/85; PULSE 74
== END 2022-03-13 14:43 | disposition home or self-care (01) ==
LOC: EC 09:50
DX: N13.2 Hydronephrosis with renal and ureteral calculous obstruction (principal)
CPT/HCPCS: 36415; 80053; 82150; 83690; 85025; 81001; 84702; 74177; 99284; 96374; 96375; J2270; J1885; Q9967

== ENCOUNTER → 2023-06-19 | Outpatient (CLI) | payer BC ==
--- NOTE | 2023-06-19 16:27 | CT ---
EXAMINATION TYPE: CT sinus wo con CT DLP: 757.3 mGycm, Automated exposure control for dose reduction was used. DATE OF EXAM: 06/19/2023 3:35 PM COMPARISON: CT facial bones 10/28/2013. CLINICAL INDICATION:Female, 33 years old with history of J32.9 CHRONIC SINUSITIS, UNSPECIFIED; PHH, C ontinuous sinus infections for years CONTRAST: None. TECHNIQUE: Multiple thin axial images were obtained through the paranasal sinuses without the use of IV contrast. Additional coronal and sagittal reformatted images were submitted for evaluation. FINDINGS: Frontal sinuses: Aerated. Aplasia of the left frontal sinus. Frontal Recess: Clear Maxillary Sinuses: Normally aerated and developed with postsurgical changes along both medial morgan. Maxillary Infundibula([facility]): Postsurgical changes and clear. Ethmoid sinuses: Normally developed with postsurgical changes bilaterally. Normal aeration. Ethmoidal notch: Protected and abutting the lateral lamina. Sphenoid sinuses: Normally developed and aerated. There is sellar sphenoid sinus pneumatization witho ut evidence of dehiscence. No dehiscence of carotid canal. No evidence of optic nerve dehiscence wit hin the sphenoid sinus. Sphenoethmoidal recesses: Clear. Nasal septum: Minimal deviation to the left. Nasal Turbinates: Within normal limits. Mastoid air cells & middle ears: The air cells are clear. The middle ears are grossly unremarkable. Modified Soft tissues & Brain: Partially seen without gross abnormality. Globes are intact. Other: Cribriform plate demonstrates asymmetric Keros classification type 2 cribriform plate. No evidence of bony dehiscence of skull base. Lamina papyracea is intact without evidence of remote orbital fracture or orbital prolapse into the e thmoid sinus. IMPRESSION: No significant mucosal sinus disease. Post surgical changes of the bilateral maxillary sinuses and et hmoid sinuses including both ostiomeatal complexes which are clear.
== END | disposition home or self-care (01) ==
LOC: RADCTMAIN 15:04
PROVIDERS: ATTEND Otolaryngology
DX: J32.9 Chronic sinusitis, unspecified (principal)
CPT/HCPCS: 70486

== ENCOUNTER → 2023-09-18 | Outpatient (CLI) | payer BC ==
--- NOTE | 2023-09-18 11:25 | P.GSHP ---
History of Present Illness H&P Date: 09/18/23 Chief Complaint: left breast lump Miriam is a 33 year old female seen in consultation for DR. Flor regarding a lump in her left breast. She had a bilateral mammogram on 07-10-23 which led to a left breast ultrasound on 07-25-23, this showed a 1.6 cm lesion probable fibroadenoma. The mammogram was done secondary to pain in the breast. The pain is worse if she doesn't wear a bra. It is worse with her period. The pain does not radiate. It is soreness. It is worse with palpation. She is not complaining of any nipple discharge or skin changes. She is not complaining of any recent trauma or infection in the breast. She has never had any surgery on her breast. Nicotine: 1/2 pack/week caffiene: several monsters/day chocolate: eats weekly BCP: yes, not using them now stopped last year, did use them for about 20 years hormones: none Family History: unsure Hormonal History: menarche: 11 G0 periods irregular; been on BCP until last year Surgical History: sinus surgery Medical History: none History: Nicotine: Half a pack per week Alcohol: Occasional Drugs:none - Constitutional Constitutional: Denies chills, Denies fever - EENT Eyes: denies blurred vision, denies pain Ears: deny: decreased hearing, tinnitus Ears, nose, mouth and throat: Reports headache, Denies sore throat - Breasts Breasts: bilateral: as per HPI - Cardiovascular Cardiovascular: Denies chest pain, Denies shortness of breath - Respiratory Respiratory: Denies cough, Denies 7 - Gastrointestinal Gastrointestinal: Denies abdominal pain, Denies diarrhea, Denies nausea, Denies vomiting - Genitourinary (Female) Genitourinary: Denies dysuria, Denies hematuria - Menstruation Menstruation: Reports as per HPI, Reports cycle variable - Musculoskeletal Musculoskeletal: Denies myalgias - Integumentary Integumentary: Denies pruritus, Denies rash - Neurological Neurological: Denies numbness, Denies weakness - Psychiatric Psychiatric: Reports anxiety, Reports depression - Endocrine Endocrine: Denies fatigue, Denies weight change - Hematologic/Lymphatic Comment: none - Allergic/Immunologic Allergic/Immunologic: Reports seasonal allergies Past Medical History Past Medical History: No Reported History Additional Past Medical History / Comment(s): Migraine History of Any Multi-Drug Resistant Organisms: None Reported Additional Past Surgical History / Comment(s): sinus surgery Past Psychological History: Anxiety, Depression Smoking Status: Never smoker Past Alcohol Use History: Occasional Past Drug Use History: None Reported Medications and Allergies Home Medications Medication Instructions Recorded Confirmed Type Dextroamphetamine/Amphetamine 10 mg PO TID PRN 03/19/21 03/19/21 History [Adderall] Erenumab-Aooe [Aimovig 140 mg INJ Q30D 03/19/21 03/19/21 History Autoinjector] Medroxyprogesterone Acetate 150 mg INJ Q84D 03/19/21 03/19/21 History [Depo-Provera] Venlafaxine HCl [Effexor XR] 37.5 mg PO HS 03/19/21 03/19/21 History Ibuprofen [Motrin] 800 mg PO Q8H 10 Days #30 tab 03/13/22 Rx Allergies Allergy/AdvReac Type Severity Reaction Status Date / Time No Known Allergies Allergy Verified 03/13/22 10:17 Surgical - Exam - General no distress - Eyes normal ocular movement - ENT no hearing loss - Neck trachea midline - Respiratory normal respiratory effort, clear to auscultation - Cardiovascular Rhythm: regular Heart Sounds: normal: S1, S2 - Abdomen Abdomen: soft, non tender, no guarding, no rigid, no rebound - Integumentary normal turgor - Neurologic no disoriented, no combative - Musculoskeletal normal gait - Psychiatric oriented to time, oriented to person, oriented to place, speech is normal, memory intact Breast Exam: BRA: 40DD Inspection: Bladder low grade 2 ptosis Palpation: Right breast: Multiple positional exam fibrocystic changes no dominant masses or notches of concern Right axilla: No adenopathy of concern Left breast: Multiple positional exam increased nodularity 2 o'clock position no other dominant masses or nodules of concern Left axilla: No adenopathy of concern Results Mammogram and ultrasound personally reviewed, ultrasound reveals a 1.2 x 1.7 cm lesion at the 2 o'clock position of the left breast which corresponds to that which is palpable Mammogram reveals a rounded density in the left breast measuring 1.6 cm a centimeters from the nipple Assessment and Plan Assessment: Impression: Cyclic mastodynia Radiographic abnormality left breast corresponds with palpable change left breast Plan: Recommendation for lifestyle modification stop nicotine and caffeine Ultrasound core biopsy left breast lesion follow-up after ultrasound core biopsy Cc: Dr. Dos Santos
== END ==
LOC: WWCWWP 10:38
PROVIDERS: ATTEND Surgery
DX: N64.4 Mastodynia (principal); F32.A Depression, unspecified; F41.9 Anxiety disorder, unspecified; N63.20 Unspecified lump in the left breast, unspecified quadrant; F17.200 Nicotine dependence, unspecified, uncomplicated

== ENCOUNTER → 2023-10-01 | Day surgery (SDC) | payer BC ==
--- NOTE | 2023-10-07 14:44 | MM ---
Reason for Exam: Post Procedure Mammogram. Patient History: Last menstrual period: 09/23/2023 Risk Values: Gabi 5 year model risk: 0.2%. NCI Lifetime model risk: 6.9%. Tissue Density: Left: The breast tissue is heterogeneously dense. This may lower the sensitivity of mammography. Pathology Description: Location: 2 o'clock. Marker Left Behind. Needle Type: Celero Cores: 1 Gauge: 12 The procedure of ultrasound guided core biopsy was explained to the patient. Benefits, alternatives, and risks were discussed. An informed consent was then obtained. The patient was placed in supine positioning for imaging and for the procedure. The overlying skin was prepped and draped in usual sterile fashion. Lidocaine was used as anesthetic into the skin and subcutaneous tissue up to area of concern in the 2:00 left breast. Under ultrasound guidance, a 12-gauge Celero vacuum assisted biopsy gun device was used to obtain one core samples. Following this, a coil Hydromark clip was left in lesion. The patient tolerated the procedure well without any immediate complication. The patient was kept in the radiology department for short stay after the procedure and then discharged home in stable condition. Postprocedure mammogram: The patient was transferred to mammography for physician ordered post procedure mammogram for clip placement verification. Post procedure mammogram shows clip within the mammographic mass. IMPRESSION: Successful, uncomplicated ultrasound guided core biopsy of 2:00 left breast mass, mammographic correlate. A fibroadenoma is suspected. Full pathology results to follow. Pathology Results: Result: Benign, Fibroadenoma. LEFT BREAST, TWO O'CLOCK, ULTRASOUND GUIDED NEEDLE CORE BIOPSY: Benign fibroadenoma with myxoid change. Overall Assessment: Benign Assessment: MG diagnostic mammo LT wo CAD. - Left: Benign, BI-RAD 2. Management: Diagnostic Mammogram of the left breast in 6 months. Surgical consultation if palpable and symptomatic. Otherwise, 6 month follow up mammogram. Electronically signed and approved by: Magy Collado M.D. Radiologist
== END ==
LOC: RADUSWWP 12:23
PROVIDERS: ATTEND Surgery
DX: D24.2 Benign neoplasm of left breast (principal)
CPT/HCPCS: 88305; 77065; 19083; A4648

== ENCOUNTER → 2023-10-08 | Outpatient (CLI) | payer BC ==
--- NOTE | 2023-10-08 11:06 | P.PN ---
Subjective Progress Note Date: 10/08/23 left breast lump Miriam is a 33 year old female seen in consultation for DR. Flor regarding a lump in her left breast. She had a bilateral mammogram on 07-10-23 which led to a left breast ultrasound on 07-25-23, this showed a 1.6 cm lesion probable fibroadenoma. The mammogram was done secondary to pain in the breast. The pain is worse if she doesn't wear a bra. It is worse with her period. The pain does not radiate. It is soreness. It is worse with palpation. She is not complaining of any nipple discharge or skin changes. She is not complaining of any recent trauma or infection in the breast. She has never had any surgery on her breast. left breast ultrasound biopsy on 10-01-23 fibroadenoma with myxoid change; this is symptomatic for the patient. Nicotine: 1/2 pack/week caffiene: several monsters/day chocolate: eats weekly BCP: yes, not using them now stopped last year, did use them for about 20 years hormones: none Family History: unsure Hormonal History: menarche: 11 G0 periods irregular; been on BCP until last year Surgical History: sinus surgery Medical History: none History: Nicotine: Half a pack per week Alcohol: Occasional Drugs:none - Constitutional Constitutional: Denies chills, Denies fever - EENT Eyes: denies blurred vision, denies pain Ears: deny: decreased hearing, tinnitus Ears, nose, mouth and throat: Reports headache, Denies sore throat - Breasts Breasts: bilateral: as per HPI - Cardiovascular Cardiovascular: Denies chest pain, Denies shortness of breath - Respiratory Respiratory: Denies cough, - Gastrointestinal Gastrointestinal: Denies abdominal pain, Denies diarrhea, Denies nausea, Denies vomiting - Genitourinary (Female) Genitourinary: Denies dysuria, Denies hematuria - Menstruation Menstruation: Reports as per HPI, Reports cycle variable - Musculoskeletal Musculoskeletal: Denies myalgias - Integumentary Integumentary: Denies pruritus, Denies rash - Neurological Neurological: Denies numbness, Denies weakness - Psychiatric Psychiatric: Reports anxiety, Reports depression - Endocrine Endocrine: Denies fatigue, Denies weight change - Hematologic/Lymphatic Comment: none - Allergic/Immunologic Allergic/Immunologic: Reports seasonal allergies Past Medical History Past Medical History: No Reported History Additional Past Medical History / Comment(s): Migraine History of Any Multi-Drug Resistant Organisms: None Reported Additional Past Surgical History / Comment(s): sinus surgery Past Psychological History: Anxiety, Depression Smoking Status: Never smoker Past Alcohol Use History: Occasional Past Drug Use History: None Reported Medications and Allergies Home Medications Medication Instructions Recorded Confirmed Type Dextroamphetamine/Amphetamine 10 mg PO TID PRN 03/19/21 03/19/21 History [Adderall] Erenumab-Aooe [Aimovig 140 mg INJ Q30D 03/19/21 03/19/21 History Autoinjector] Medroxyprogesterone Acetate 150 mg INJ Q84D 03/19/21 03/19/21 History [Depo-Provera] Venlafaxine HCl [Effexor XR] 37.5 mg PO HS 03/19/21 03/19/21 History Ibuprofen [Motrin] 800 mg PO Q8H 10 Days #30 tab 03/13/22 Rx Allergies Allergy/AdvReac Type Severity Reaction Status Date / Time No Known Allergies Allergy Verified 03/13/22 10:17 Objective - Vital Signs Vital signs: Intake & Output 10/07/23 10/08/23 10/08/23 18:59 06:59 18:59 Weight 73.028 kg - Constitutional General appearance: Present: cooperative - EENT Eyes: Present: EOMI ENT: Present: hearing grossly normal - Neck Neck: Present: normal ROM - Respiratory Respiratory: bilateral: CTA - Cardiovascular Heart sounds: normal: S1, S2 - Integumentary Integumentary: Present: normal turgor - Musculoskeletal Musculoskeletal: Present: gait normal - Psychiatric Psychiatric: Present: A&O x's 3, appropriate affect, intact judgment & insight - Additional findings Additional findings: Breast Exam: BRA: 40DD Inspection: Bilateral grade 2 ptosis Palpation: Right breast: Multiple positional exam fibrocystic changes no dominant masses or notches of concern Right axilla: No adenopathy of concern Left breast: Multiple positional exam increased nodularity 2 o'clock position no other dominant masses or nodules of concern Left axilla: No adenopathy of concern Assessment and Plan Assessment: Impression: Biopsy-proven fibroadenoma left breast symptomatic/2 o'clock position Mastodynia Plan: left Breast needle localization lumpectomy at 2 O Clock, possible oncoplastic tissue transfer. Patient encouraged to stop smoking and stop caffeine use Risk and benefits of the procedure discussed with the patient, risk include but are not limited to bleeding, infection, reaction to the anesthetic. The risk t hat the needle could move and the lesion not be completely removed is also discussed. The patient and her boyfriend understand and she wishes to proceed. CC: Dr. Louie
[2023-10-08 11:10] VITALS: BP 130/72; PULSE 85; RESP 17; TEMP 97.9
== END ==
LOC: WWCWWP 10:44
PROVIDERS: ATTEND Surgery
DX: N64.4 Mastodynia (principal); D24.2 Benign neoplasm of left breast; F32.A Depression, unspecified; F41.9 Anxiety disorder, unspecified; G43.909 Migraine, unspecified, not intractable, without status migrainosus; F17.210 Nicotine dependence, cigarettes, uncomplicated

== ENCOUNTER → 2024-10-13 | Outpatient (CLI) | payer BC ==
--- NOTE | 2024-10-13 12:07 | MM ---
Reason for Exam: Follow-up at short interval from prior study. Patient History: Menarche at age 11. Hormonal Contraceptives, from age 14 until age 29. 10/01/2023, Benign US biopsy breast VAD LT on the left side. Last menstrual period: 10/11/2024 Risk Values: Gabi 5 year model risk: 0.4%. NCI Lifetime model risk: 9.2%. Tissue Density: The breasts are heterogeneously dense, which may obscure small masses. Findings: Analyzed By CAD. Left breast biopsy clip. Table previously biopsied mass in the left breast. No new suspicious masses, calcifications or distortions. Overall Assessment: Benign, BI-RAD 2 Management: Screening Mammogram of both breasts in 1 year. Results were given to the patient verbally at the time of exam. Patient should continue monthly self-breast exams. A clinical breast exam by your physician is recommended on an annual basis. This exam should not preclude additional follow-up of suspicious palpable abnormalities. Note on Gabi scores and lifetime risk: 1. A Gabi score greater than 3% is considered moderate risk. If this is the case, consider specialist referral to assess eligibility for a risk reducing agent. 2. If overall lifetime risk for the development of breast cancer is 20% or higher, the patient may qualify for future screening with alternating mammogram and breast MRI. [facility], , 10/13/2024 12:02 PM. Electronically signed and approved by: Marshall Vega DO
== END | disposition home or self-care (01) ==
LOC: RADMAMWWP 11:18
PROVIDERS: ATTEND Family Medicine
DX: R92.8 Other abnormal and inconclusive findings on diagnostic imaging of breast (principal); R92.333 Mammographic heterogeneous density, bilateral breasts; R92.2 Inconclusive mammogram
CPT/HCPCS: 77062; 77066

== ENCOUNTER → 2025-02-24 | Outpatient (CLI) | payer BC ==
--- NOTE | 2025-02-24 14:35 | P.PN ---
Subjective Progress Note Date: 02/24/25 Principal diagnosis: Irregular mass right breast 9:00, left breast symptomatic fibroadenoma 02-24-25 Principal diagnosis: symptomatic fibroadenoma left breast/ abnormal right breast ultrasound 10/08/23 left breast lump Miriam is a 34 year old female seen in consultation for DR. Flor regarding a lump in her left breast. She had a bilateral mammogram on 07-10-23 which led to a left breast ultrasound on 07-25-23, this showed a 1.6 cm lesion probable fibroadenoma. The mammogram was done secondary to pain in the breast. The pain is worse if she doesn't wear a bra. It is worse with her period. The pain does not radiate. It is soreness. It is worse with palpation. She is not complaining of any nipple discharge or skin changes. She is not complaining of any recent trauma or infection in the breast. She has never had any surgery on her breast. left breast ultrasound biopsy on 10-01-23 fibroadenoma with myxoid change; this is symptomatic for the patient, she was scheduled for resection however decided not to and to have this followed conservatively. She did not come back for follow-up until now. She had a bilateral mammogram performed on 10-13-2024 which was felt to be BI- RADS 2 She is able to feel diffuse nodularity in her breast. bilateral breast ultrasound on 02-17-25: right bresat: 12:00 cyst 8mm by 12 mm by 7 mm follow up in 6 months 9:00 13 X 11 X 7 mm lesion irregular mass needs biopsy Left breast: bilobed hypoechoic mass 28 x 12 x 17 mm Nicotine: 1/2 pack/week in the past, now stopped caffiene: several monsters/day in the past; stopped this chocolate: occasional BCP: yes in the past, not using them now stopped 2 years ago, did use them for about 20 years hormones: none Family History: unsure Hormonal History: menarche: 11 G0 periods irregular Surgical History: sinus surgery Medical History: migraines/ botox injections History: Nicotine: Half a pack per week Alcohol: Occasional Drugs:none - Constitutional Constitutional: Denies chills, Denies fever - EENT Eyes: denies blurred vision, denies pain Ears: deny: decreased hearing, tinnitus Ears, nose, mouth and throat: Reports headache, Denies sore throat - Breasts Breasts: bilateral: as per HPI - Cardiovascular Cardiovascular: Denies chest pain, Denies shortness of breath - Respiratory Respiratory: Denies cough, - Gastrointestinal Gastrointestinal: Denies abdominal pain, Denies diarrhea, Denies nausea, Denies vomiting - Genitourinary (Female) Genitourinary: Denies dysuria, Denies hematuria - Menstruation Menstruation: Reports as per HPI, Reports cycle variable - Musculoskeletal Musculoskeletal: Denies myalgias - Integumentary Integumentary: Denies pruritus, Denies rash - Neurological Neurological: Denies numbness, Denies weakness - Psychiatric Psychiatric: Reports anxiety, Reports depression - Endocrine Endocrine: Denies fatigue, Denies weight change - Hematologic/Lymphatic Comment: none - Allergic/Immunologic Allergic/Immunologic: Reports seasonal allergies Past Medical History Past Medical History: No Reported History Additional Past Medical History / Comment(s): Migraine History of Any Multi-Drug Resistant Organisms: None Reported Additional Past Surgical History / Comment(s): sinus surgery Past Psychological History: Anxiety, Depression Smoking Status: Never smoker Past Alcohol Use History: Occasional Past Drug Use History: None Reported Medications and Allergies Home Medications Medication Instructions Recorded Confirmed Type Dextroamphetamine/Amphetamine 10 mg PO TID PRN 03/19/21 03/19/21 History [Adderall] Erenumab-Aooe [Aimovig 140 mg INJ Q30D 03/19/21 03/19/21 History Autoinjector] Medroxyprogesterone Acetate 150 mg INJ Q84D 03/19/21 03/19/21 History [Depo-Provera] Venlafaxine HCl [Effexor XR] 37.5 mg PO HS 03/19/21 03/19/21 History Ibuprofen [Motrin] 800 mg PO Q8H 10 Days #30 tab 03/13/22 Rx Allergies Allergy/AdvReac Type Severity Reaction Status Date / Time No Known Allergies Allergy Verified 03/13/22 10:17 Objective - Constitutional General appearance: Present: cooperative - EENT Eyes: Present: EOMI ENT: Present: hearing grossly normal - Neck Neck: Present: normal ROM - Respiratory Respiratory: bilateral: CTA - Cardiovascular Rhythm: regular Heart sounds: normal: S1, S2 - Integumentary Integumentary: Present: normal turgor - Musculoskeletal Musculoskeletal: Present: gait normal - Psychiatric Psychiatric: Present: A&O x's 3, appropriate affect, intact judgment & insight - Additional findings Additional findings: Breast Exam: BRA: 40DD Inspection: Bilateral grade 2 ptosis Palpation: Right breast: Multiple positional exam fibrocystic changes, nodularity upper outer quadrant area, tender to palpation in area consistent with lesion seen on ultrasound Right axilla: No adenopathy of concern Left breast: Multiple positional exam increased nodularity 2 o'clock position no other dominant masses or nodules of concern Left axilla: No adenopathy of concern Assessment and Plan Assessment: Impression: Biopsy-proven fibroadenoma left breast symptomatic/2 o'clock position Mastodynia Bilateral mammogram 10-13-2024 BI-RADS 2 bilateral breast ultrasound on 02-17-25 needs core biopsy right breast Plan: right breast ultrasound core biopsy/ follow up after this is done left breast needle localization resection of symptomatic fibroadenoma, possible oncoplastic tissue transfer Consent: I have discussed the risks, benefits and alternative therapies for the above-mentioned procedure and for both sedation/analgesia as well as necessary blood product administration, if indicated, as they pertain to this patient. The patient has indicated understanding and acceptance of the risks and procedures discussed. CC: Dr. Louie
[2025-02-24 14:44] VITALS: BP 137/63; PULSE 65; RESP 17; TEMP 97.9
== END ==
LOC: WWCWWP 14:14
PROVIDERS: ATTEND Surgery
DX: Z12.31 Encounter for screening mammogram for malignant neoplasm of breast (principal); N64.4 Mastodynia; D24.2 Benign neoplasm of left breast; F17.200 Nicotine dependence, unspecified, uncomplicated

== ENCOUNTER → 2025-03-02 | Day surgery (SDC) | payer BC ==
--- NOTE | 2025-03-08 09:14 | USB ---
Risk Values: Gabi 5 year model risk: 0.4%. NCI Lifetime model risk: 9.2%. Prior Study Comparison: 10/01/2023 Left MG diagnostic mammo LT wo CAD., [facility]. 10/13/2024 Bilateral MG 3D diag mammo w/cad [facility], [facility]. Pathology Description: Location: 9 o'clock. Marker Left Behind. Needle Type: Mammotome Cores: 4 Skin Nicks: 1 The lobulated hypoechoic lesion measuring 1.4 cm at the 9:00 position right breast, 9 cm from the nipple was identified and targeted for biopsy. We note dense surrounding tissue. No significant increased vascularity. The procedure of ultrasound guided core biopsy was explained to the patient. Benefits, alternatives, and risks were discussed. An informed consent was then obtained. The patient was placed in supine positioning for imaging and for the procedure. The overlying skin was prepped and draped in usual sterile fashion. Lidocaine buffered with bicarbonate was used as anesthetic into the skin and subcutaneous tissue up to area of concern in the right breast. Under ultrasound guidance, a 13-gauge vacuum-assisted mammotome Elite biopsy gun device was used to obtain 4 core samples. Following this, a HydroMark coil clip was left in lesion. The patient tolerated the procedure with distress and discomfort. We utilized extra lidocaine (total 10 mL 1% lidocaine) to ensure adequate anesthesia at the biopsy site. No immediate complication. The patient was kept in the radiology department for short stay after the procedure and then discharged home in stable condition. Postprocedure mammogram: Not performed at this time given patient's age. If results and symptoms warrant excision, mammogram could be performed at that time. Impression: Successful, uncomplicated ultrasound guided core biopsy 9:00 right breast, possible fibroadenoma; full pathology results to follow. Patient with planned excision for a symptomatic fibroadenoma on the left. [facility], , 03/02/2025 1:02 PM. Pathology Results: Result: Benign, Fibroadenoma. Pathology and radiology were reviewed. Findings are concordant. RIGHT BREAST, NINE O'CLOCK, ULTRASOUND GUIDED NEEDLE CORE BIOPSY: Fibroadenoma and background fibrocystic changes. Overall Assessment: Benign Management: Surgical Consultation of the right breast. Electronically signed and approved by: Magy Collado M.D. Radiologist
== END ==
LOC: RADUSWWP 09:35
PROVIDERS: ATTEND Surgery
DX: D24.1 Benign neoplasm of right breast (principal)
CPT/HCPCS: 88305; 19083; A4648

== ENCOUNTER 2025-03-22 07:05 | Day surgery (SDC) | payer BC ==
[2025-03-17 15:07] VITALS: BMI 28.9
[~2025-03-22 07:05] MED LIST: METHYLENE BLUE 50 MG, DEXTROSE 5% IN WATER 50 ML MISCELLANE ONE
[2025-03-22] MEDS: IV FLUID CONTINUATION 1,000 ML IV ONE ×2 (08:03→12:55)
[2025-03-22] MEDS: LACTATED RINGERS 1,000 ML IV SCH (08:06)
[2025-03-22] MEDS: ALPRAZolam 0.5 MG TAB PO STA (08:31)
[2025-03-22] MEDS: SODIUM BICARB 8.4% 50 ML VIAL (1 MEQ/ML) MISCELLANE ONE (09:38)
[2025-03-22] MEDS: LIDOCAINE 1% INJ 10MG/ML (20 ML MDV) SQ ONE ×2 (09:38→12:05)
[2025-03-22] MEDS: METHYLENE BLUE 50 MG/10 ML VIAL MISCELLANE ONE (09:42)
[2025-03-22] MEDS: ACETAMINOPHEN TAB 500 MG TAB PO PRN (10:21)
[2025-03-22] MEDS: ONDANSETRON 4 MG/2 ML VIAL IVP ONE (10:23)
[2025-03-22] MEDS: DEXAMETHASONE SOD PHOSPHATE 4 MG/ML 1 ML VIAL IV ONE (10:23)
[2025-03-22] MEDS: HEPARIN SODIUM,PORCINE 5,000 UNIT/ML 1 ML VIAL SQ PRN (10:24)
[2025-03-22] MEDS: SCOPOLAMINE 1 MG/72 HR PATCH TRANSDERM ONE (10:24)
[2025-03-22] MEDS: MIDAZOLAM 2 MG/2 ML VIAL IV PRN (10:31)
[2025-03-22] MEDS ORDERED: LIDOCAINE 1% INJ 10MG/ML (20 ML MDV) ONE (11:29)
[2025-03-22] MEDS ORDERED: MIDAZOLAM 2 MG/2 ML VIAL ONE (11:29)
[2025-03-22] MEDS ORDERED: fentaNYL (PF) 50 MCG/ML 2 ML AMP ONE (11:29)
[2025-03-22] MEDS ORDERED: SUCCINYLCHOLINE CHLORIDE 200 MG/10 ML VIAL IV ONE (11:29)
[2025-03-22] MEDS ORDERED: KETOROLAC 15 MG/ML 1 ML VIAL ONE (11:29)
[2025-03-22] MEDS ORDERED: ROCURONIUM 10 MG/ML (5 ML VIAL) IV ONE (11:29)
[2025-03-22] MEDS ORDERED: ePHEDrine 50 MG/ML 1 ML VIAL ONE (11:29)
[2025-03-22] MEDS ORDERED: PROPOFOL 10 MG/ML 20 ML VIAL IV ONE (11:29)
--- NOTE | 2025-03-22 12:51 | P.BCAON ---
Date of Procedure: 03/22/25 Preoperative Diagnosis: Bilateral symptomatic fibroadenomas Postoperative Diagnosis: Same Procedure(s) Performed: Needle localization resection of bilateral symptomatic fibroadenomas Anesthesia: ANGEL Surgeon: Giselle Santillan Estimated Blood Loss (ml): 10 IV fluids (ml): 800 Pathology: other (Breast tissue bilateral) Condition: stable Disposition: same day Indications for Procedure: Bilateral symptomatic fibroadenoma Operative Findings: Dense breast tissue Description of Procedure: The patient was first seen in the radiology department for needle localization of a 9 o'clock position right breast and 2 o'clock position left breast symptomatic fibroadenoma was performed. Methylene blue was injected at both sites as well. The patient was then brought to the operative suite. Following induction of anesthesia both breasts were prepped and draped in a sterile fashion. The right breast was approached initially. An incision was made and carried down to the hook of the needle. Surrounding tissue was excised. The clip was identified and sent with the specimen. The specimen was painted for orientation. Titanium clips were placed. The cavity was irrigated. After we are sure that hemostasis was attained Surgicel and powder form was placed. The deep tissues were closed using 3-0 Vicryl suture. The skin was closed using 4-0 Monocryl. The area of the left breast was approached. Incision was made and carried down to the hook of the needle. Surrounding tissue was excised. The specimen was removed and painted for orientation. Titanium clips were placed in the cavity. The cavity was irrigated. After reassured that hemostasis was attained Surgicel and powder form was placed. The radiograph of both specimens revealed the areas of concern had been removed. The deep tissues in the left side were closed using 3-0 Vicryl suture. The skin was closed using 4-0 Monocryl. 10 cc of 1% lidocaine was injected into the area of the incisions. The patient tolerated the procedure in stable condition. All instrument and sponge counts were correct at the end of the case. Surgical glue was applied to both incisions.
[2025-03-22 13:20] VITALS: TEMP 98.3
[2025-03-22] MEDS: HYDROmorphone 0.5 MG/0.5 ML SYRINGE IVP PRN (14:05)
[2025-03-22 15:15] VITALS: BP 132/82; PULSE 93; RESP 18
--- NOTE | 2025-03-28 09:52 | MM ---
Reason for Exam: Post Procedure Mammogram. Last screening mammogram was performed 6 month(s) ago. Patient History: Menarche at age 11. Hormonal Contraceptives, from age 14 until age 29. 03/02/2025, Benign US biopsy breast VAD RT on the right side. 10/01/2023, Benign US biopsy breast VAD LT on the left side. Risk Values: Gabi 5 year model risk: 0.8%. NCI Lifetime model risk: 12.1%. Prior Study Comparison: 10/01/2023 Left MG diagnostic mammo LT wo CAD., [facility]. 10/13/2024 Bilateral MG 3D diag mammo w/cad [facility], [facility]. Tissue Density: The breasts are heterogeneously dense, which may obscure small masses. Pathology Description: Location: 9 o'clock. Needle Type: 5 cm Kopan Pathology Description: Location: 2 o'clock. Needle Type: 5 cm Kopan The procedure of needle localization with wire placement and than surgical excision was explained to the patient. Benefits, alternatives, and risks were discussed. An informed consent was then obtained. Ultrasound guidance was chosen for bilateral procedures. The overlying skin was prepped and draped in usual sterile fashion. Lidocaine buffered with bicarbonate was used as anesthetic into the skin and subcutaneous tissue up to the level of area of concern in both breasts. A 5 cm needle was used. It was placed via ultrasound guidance. When needle was seen at the margin of the masses, approximately 1 mL of methylene blue was injected by myself as per ordering surgeon request bilaterally. Subsequent needle was then advanced into masses. At this point, wires was placed and the needle was withdrawn bilaterally. The wires were fixed to patient's skin. Preprocedure mammogram was performed as per ordering surgeon request which shows successful positioning of wires relative to the masses and biopsy clips. Images were reviewed with the surgeon prior to surgery. The patient tolerated the procedure well without any immediate complication. The patient was kept in the radiology department for short stay after the procedure and then taken to surgery for surgical excision. Targeted clips and wires are identified in bilateral specimen mammograms. The patient was kept in hospital for short stay after the procedure and then discharged home in stable condition. IMPRESSION: Successful, uncomplicated needle localization with wire placement and surgical excision of biopsy-proven fibroadenomas in the bilateral breasts, full pathology results to follow. [facility], , 03/22/2025 1:19 PM. Pathology Results: Result: Benign, Fibroadenoma. Pathology and radiology were reviewed. Findings are concordant. A. RIGHT BREAST, NEEDLE LOCALIZATION LUMPECTOMY: Fibroadenoma, margins negative. Background fibrocystic changes and previous biopsy site. B. LEFT BREAST, NEEDLE LOCALIZATION LUMPECTOMY: Fibroadenoma focally extending to the lateral and superior margins. Other margins negative. Background fibrocystic changes and previous biopsy site. C. RIGHT BREAST NEW SUPERIOR MARGIN, EXCISION: Benign breast with fibrocystic changes. D. RIGHT BREAST NEW POSTERIOR MARGIN, EXCISION: Benign breast with fibrocystic changes. Overall Assessment: Benign Assessment: MG diagnostic mammo BI wo CAD - Bilateral: Benign, BI-RAD 2. Management: Screening Mammogram of both breasts at age 38. Electronically signed and approved by: Alexander Petersen M.D.
== END 2025-03-22 15:24 | disposition home or self-care (01) ==
LOC: OR 07:05
PROVIDERS: ATTEND Surgery
DX: D24.1 Benign neoplasm of right breast (principal); D24.2 Benign neoplasm of left breast; F90.9 Attention-deficit hyperactivity disorder, unspecified type; F31.9 Bipolar disorder, unspecified; G43.909 Migraine, unspecified, not intractable, without status migrainosus; Z87.891 Personal history of nicotine dependence; Z79.899 Other long term (current) drug therapy
CPT/HCPCS: 19301; 81025; 88307; 77066; 76098 ×2; 19285; 19286; C1819; J2250; J0330; J1644; J1100; J0690; J2405; J2003; J3010; J1885; J2704; Q9968; J1171

== ENCOUNTER → 2025-04-07 | Outpatient (CLI) | payer BC ==
[2025-04-07 14:55] VITALS: BP 143/99; PULSE 100; RESP 16; TEMP 98.4
--- NOTE | 2025-04-07 14:57 | P.BCPO ---
Progress Note - Text Progress Note Date: 04/07/25 Miriam is status post resection of fibroadenoma right and left breast on 03-22-25. The right lesion had (-) margins, the left lesion focally extended to the lateral and superior margin. she did well post operatively. Examination: Lungs: Clear Heart: Regular rate and rhythm Incision right and left breast clean and dry Impression: Patient doing well postoperatively Plan: Patient instructed to be careful about heavy lifting which would jostle her breast or to avoid jogging until these are completely healed which takes 6 weeks from the time of surgery Patient will have repeat bilateral ultrasound in 6 months with examination at that time Patient to follow-up sooner any questions or concerns
== END ==
LOC: WWCWWP 14:27
PROVIDERS: ATTEND Surgery
DX: Z48.89 Encounter for other specified surgical aftercare (principal); F17.200 Nicotine dependence, unspecified, uncomplicated; Z98.890 Other specified postprocedural states